=== PATIENT | male | born 1975 | race Hispanic/Latino ===

== ENCOUNTER 2017-07-02 12:49 | Emergency (ER) | payer OTHER ==
[2017-07-02 12:53] VITALS: BMI 37.3
[2017-07-02 12:57] VITALS: TEMP 98.7; O2SAT 100
--- NOTE | 2017-07-02 13:39 | ED PDOC ---
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 Patient reports he was at work and became weak and anxious. Patient denies fever , shortness of breath, headache, chest pain, recent illnesses, or other complaints. Patient is currently asymptomatic. Time/Duration: Prior to Arrival Symptom Onset: Sudden Symptom Course: Unchanged Context: Work Past Medical History - Provider Review Nursing Documentation Reviewed: Yes - Cardiac Other/Comment: Lzane-Uyihximjy-Mcgwj (WPW) syndrome - Pulmonary Hx Respiratory Disorders: No - Psychiatric Hx Substance Use: No - Surgical History Hx Appendectomy: Yes Hx Cholecystectomy: Yes - Anesthesia Hx Anesthesia: Yes Hx Anesthesia Reactions: No Family/Social History - Physician Review Nursing Documentation Reviewed: Yes Family/Social History: Unknown Family HX Smoking Status: Heavy Smoker > 10 Cigarettes Daily Hx Alcohol Use: Yes Frequency of alcohol use: Socially Hx Substance Use: No Allergies/Home Meds Allergies/Adverse Reactions: Allergies No Known Allergies Allergy (Verified 07/02/17 13:00) Home Medications: Home Meds Medication Instructions Recorded Confirmed Unobtainable 07/02/17 07/02/17 Review of Systems - Review of Systems Constitutional: Fatigue. absent: Fevers Eyes: absent: Vision Changes ENT: Other (lump on right side of neck ) Respiratory: absent: SOB Cardiovascular: absent: Chest Pain Gastrointestinal: absent: Abdominal Pain Neurological: absent: Headache, Dizziness Psychiatric: Anxiety Physical Exam Vital Signs Reviewed: Yes Vital Signs Temp Pulse Resp BP Pulse Ox 07/02/17 15:57 76 16 142/87 100 07/02/17 12:56 98.7 F 84 18 144/87 100 Temperature: Afebrile Blood Pressure: Normal Pulse: Regular Respiratory Rate: Normal Appearance: Positive for: Well-Appearing, Non-Toxic Pain Distress: None Mental Status: Positive for: Alert and Oriented X 3 - Systems Exam Head: Present: Atraumatic, Normocephalic Pupils: Present: PERRL Extroacular Muscles: Present: EOMI Conjunctiva: Present: Normal Neck: Present: Normal Range of Motion, Lymphadenopathy (noted on the right side of neck ) Respiratory/Chest: Present: Clear to Auscultation, Good Air Exchange. No: Respiratory Distress, Accessory Muscle Use Cardiovascular: Present: Regular Rate and Rhythm, Normal S1, S2. No: Murmurs Abdomen: Present: Normal Bowel Sounds. No: Tenderness, Distention, Peritoneal Signs Neurological: Present: GCS=15, CN II-XII Intact, Speech Normal, Motor Func Grossly Intact, Normal Sensory Function, Gait Normal Skin: Present: Warm, Dry, Normal Color. No: Rashes Psychiatric: Present: Alert, Oriented x 3, Normal Insight, Normal Concentration , Anxious Medical Decision Making ED Course and Treatment: 07/02/17 Impression: 42 year old male with right sided lymphadenopathy on neck. Patient is currently asymptomatic, but is anxious and feels fatigue. Plan: -- EKG -- Labs -- Reassess and disposition Progress Notes: EKG: Ordered, reviewed, and independently interpreted the EKG. Rate : 73 BPM Rhythm : NSR, rbbb Interpretation : No ST-segment elevations or depressions, no T-wave inversions, normal intervals. Comparison : No previous EKG for comparison. 07/02/17 16:21 - Lab Interpretations Lab Results: 07/02/17 14:09 07/02/17 14:09 Lab Results 07/02/17 14:09: Sodium 141, Potassium 4.0, Chloride 104, Carbon Dioxide 26, Anion Gap 15, BUN 12, Creatinine 0.8, Est GFR ( Amer) > 60, Est GFR (Non- Af Amer) > 60, Random Glucose 98, Calcium 9.5, Total Bilirubin 0.6, AST 36, ALT 66 H, Alkaline Phosphatase 64, Total Protein 7.3, Albumin 4.3, Globulin 3.0, Albumin/Globulin Ratio 1.4 07/02/17 14:09: WBC 8.2, RBC 5.47, Hgb 17.4, Hct 49.2, MCV 89.9, MCH 31.8, MCHC 35.4, RDW 12.8, Plt Count 128, MPV 10.5, Gran % 55.2, Lymph % (Auto) 34.2, [place] % (Auto) 7.9 H, Eos % (Auto) 2.3, Baso % (Auto) 0.4, Gran # 4.51, Lymph # 2.8, [place] # 0.7 H, Eos # 0.2, Baso # 0.03 I have reviewed the lab results: Yes - EKG Interpretation Interpreted by ED Physician: Yes Type: 12 lead EKG - Scribe Statement The provider has reviewed the documentation as recorded by the Scribe Shiloh Norman Provider Scribe Attestation: All medical record entries made by the Scribe were at my direction and personally dictated by me. I have reviewed the chart and agree that the record accurately reflects my personal performance of the history, physical exam, medical decision making, and the department course for this patient. I have also personally directed, reviewed, and agree with the discharge instructions and disposition. Disposition/Present on Arrival - Present on Arrival Any Indicators Present on Arrival: No History of DVT/PE: No History of Uncontrolled Diabetes: No Urinary Catheter: No History of Decub. Ulcer: No History Surgical Site Infection Following: None - Disposition Have Diagnosis and Disposition been Completed?: Yes Diagnosis: Anxiety Disposition: HOME/ ROUTINE Disposition Time: 15:00 Patient Plan: Discharge Condition: STABLE Discharge Instructions (ExitCare): Anxiety (ED) Additional Instructions: follow up with your primary doctor in 1-2 days return to the ED with any worsening or concerning symptoms Referrals: Leroy Mayen, [Primary Care Provider] - Follow up with primary Forms: [employer] (Turkish)
[2017-07-02 14:15] LABS: BASO # 0.03 K/mm3 (0.0-2.0); BASO % 0.4 % (0.0-3.0); EOS # 0.2 (0.0-0.7); EOS % 2.3 % (1.5-5.0); GRAN # 4.51 (1.4-6.5); GRAN % 55.2 % (50.0-68.0); HEMATOCRIT 49.2 % (42.0-52.0); LYMPH # 2.8 (1.2-3.4); LYMPH % 34.2 % (22.0-35.0); MEAN CELL VOLUME 89.9 fl (80.0-105.0); MEAN CORPUSCULAR HEMOGLOBIN 31.8 pg (25.0-35.0); MEAN CORPUSCULAR HGB CONC 35.4 g/dl (31.0-37.0); MEAN PLATELET VOLUME 10.5 fl (7.0-11.0); MONO # 0.7 (0.1-0.6); MONO % 7.9 % (1.0-6.0); RED CELL DISTRIBUTION WIDTH 12.8 % (11.5-14.5); WHITE BLOOD COUNT 8.2 10^3/ul (4.5-11.0)
[2017-07-02 14:30] LABS: ALB/GLOB RATIO 1.4 (1.1-1.8); ALKALINE PHOSPHATASE 64 U/L (38-126); ALT/SGPT 66 U/L (7-56); AST/SGOT 36 U/L (17-59); BILIRUBIN,TOTAL 0.6 mg/dL (0.2-1.3); BLOOD UREA NITROGEN 12 mg/dL (7-21); CALCIUM 9.5 mg/dL (8.4-10.5); CARBON DIOXIDE 26 mmol/L (21-33); CHLORIDE 104 mmol/L (98-107); GFR AFRICAN-AMERICAN > 60; GLUCOSE,RANDOM 98 mg/dL (70-110); SODIUM 141 mmol/L (132-148); TOTAL PROTEIN 7.3 g/dL (5.8-8.3)
[2017-07-02 16:03] VITALS: BP 142/87; PULSE 76; RESP 16
--- NOTE | 2017-07-02 23:11 | CARD ---
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
== END 2017-07-02 15:57 | disposition home or self-care (01) ==
LOC: ED 12:49
DX: F41.9 Anxiety disorder, unspecified (principal); E78.00 Pure hypercholesterolemia, unspecified; I45.6 Pre-excitation syndrome; F17.210 Nicotine dependence, cigarettes, uncomplicated